=== PATIENT | male | born 1995 | race Caucasian/White ===

== ENCOUNTER 2024-07-09 09:00 | Emergency (ER) | payer BC ==
--- OUTSIDE RECORDS SUMMARY | 2024-07-09 09:02 | XMS REPORT | Continuity of Care Document ---
Author Name Unknown Address [address] [place] [address] [facility] thconnect Address [address] [place] [address] Care Team Providers Care Solution Developer Name Role Phone Dorothea Anderson MD Primary Care Physician SONJA ADAMS JR Attending Clinician Unavailable KEESHA BLANCO Attending Clinician Unavailable DILIA LEOS Attending Clinician Unavailable Dilia Leos PA-C Attending Clinician [phone] Unknown, Attending Attending Clinician UnavailChaka Yeung MD Attending Clinician [phone] Myra Thompson Attending Clinician [phone] NORA KINNEY Attending Clinician Sia Correa MD, Provider Not In Attending Clinician U JUAN MANUEL Ramon Attending Clinician UnavailNORA Hall Admitting Clinician JUAN MANUEL López Admitting Clinician Sia clayton Payers Payer Name Policy Type Policy Number Effective Date Expirati on Date Source [facility] [id number] 2019 00:00:00 [facility] [id number] 00:00:00 Allergies, Adverse Reactions, Alerts Allergy Name Allergy Type Status Severity Reaction(s) Onset Date Inactive Date Treating Clinician Comments Source NO KNOWN ALLERGIE S Drug Class Active [facility] Social History Social Habit Start Date Stop Date Quantity Comments Source History of tobacco use 2013-01-02 00:00:00 Cigarette Smoker [facility] Gender [facility] Sexual orientation [facility] Exposure to SARS-CoV-2 (event) Not sure [facility] History of Social function 2022-12-28 00:00:00 2022-12-28 00:00:00 [facility] Tobacco Comment 2022-12-28 00:00:00 2022-12-28 00:00:00 Patient Vapes daily [facility] Tobacco use and exposure 2022-12-28 00:00:00 2022-12-28 00:00:00 User of smokeless tobacco [facility] Alcohol intake 2022-12-28 00:00:00 2022-12-28 00:00:00 .29 /d [facility] Sex Assigned At 1995 00:00:00 1995 00:00:00 [facility] Smoking Status Start Date Stop Date Source Tobacco smoking consumption unknown [facility] Ex-smoker 2022-12-28 00:00:00 2022-12-28 00:00:00 [facility] Medications Ordered Medication Name Filled Medication Name Start Date Stop Date Current Medication? Ordering Clinician Indication Dosage Frequency Signature (SIG) Comments Components Source methocarbam oL 500 mg tablet 12-28 00:00: 00 Yes [id number] 500mg Take 1 tablet by mouth at bedtime as needed for Pain (scale 4-6). [facility] naproxen 500 mg tablet 12-28 00:00: 00 Yes [id number] 500mg Take 1 tablet by mouth in the morning and 1 tablet in the evening. Take with meals. [facility] Vital Signs Vital Name Observation Time Observation Value Comments S homarsharon Systolic blood pressure 2022-12-28 23:57:00 120 mm[Hg] [facility] Diastolic blood pressure 2022-12-28 23:57:00 74 mm[Hg] [facility] Heart rate 2022-12-28 23:57:00 64 /min [facility] Body temperature 2022-12-28 23:57:00 37.28 [place] [facility] Respiratory rate 2022-12-28 23:57:00 16 /min [facility] Body height 2022-12-28 23:57:00 170.2 cm [facility] Body weight 2022-12-28 23:57:00 86.183 kg [facility] BMI 2022-12-28 23:57:00 29.76 kg/m2 [facility] Oxygen saturation in Arterial blood by Pulse oximetry 2022-12-28 23:57:00 99 /min [place] [facility] Encounters Start Date/Time End Date/Time Encounter Type Admission Type Attending Clinicians Care Facility Care Department Encounter ID Source 2020-11-08 01:03:53 Outpatient SONJA ADAMS JR [facility] [id number] [facility] 2020-10-23 04:05:26 Outpatient KEESHA BLANCO [facility] [id number] [facility] 2022-12-28 18:40:00 2022-12-28 19:11:32 Outpatient R DILIA LEOS [facility] [id number] [facility] 2022-12-28 18:40:00 2022-12-28 19:11:32 Urgent Care Dilia Leos Unknown, Attending [facility]?EFFIE [facility] [id number] [facility] 2022-12-28 00:00:00 2022-12-28 00:00:00 [facility] (Out[facility] [id number] [id number] [facility] 2020-12-23 10:33:05 2020-12-23 11:02:33 Office Visit [facility] [id number] [facility] 2020-11-25 12:58:24 2020-11-25 14:55:44 Office Visit ShruthiMyra [facility] [id number] [facility] 2020-10-28 13:07:18 2020-10-29 15:48:32 Office Visit Chaka Don [facility] [id number] [facility] 2020-10-07 20:49:00 2020-10-09 14:00:00 Inpatient E NORA KINNEY [facility] MED [id number] [facility] 2020-10-09 00:00:00 2020-10-09 00:00:00 EXT [facility] OP System, Provider Not In EXT [facility] LOCATION [id number] [facility] 2020-10-09 00:00:00 2020-10-09 00:00:00 EXT [facility] OP System, Provider Not In EXT [facility] LOCATION [id number] [facility] 2020-10-07 15:56:00 2020-10-07 23:59:00 Outpatient [facility]EL [facility] [id number] [facility] 2020-10-07 00:00:00 2020-10-07 00:00:00 EXT [facility] OP Jay Adamston EXT [facility] LOCATION [id number] [facility] 2020-10-07 00:00:00 2020-10-07 00:00:00 EXT [facility] OP Bryan Sonja EXT [facility] LOCATION [id number] [facility]
[2024-07-09] MEDS ORDERED: KETOROLAC 30 MG/ML INJ ONE (09:38)
[2024-07-09 10:21] LABS: Absolute Lymphocytes (CBC) 2.3 K/uL (0.7-4.9); Absolute Monocytes 0.4 K/uL (0.1-1.3); Absolute Neutrophil 5.3 K/uL (1.8-8.0); Basophils % 0.3 % (0-1.3); Eosinophils % 0.2 % (0-4.4); Hematocrit 45.1 % (39.6-49.0); Lymphocytes % 28.2 % (15.3-44.8); MCH 31.1 pg (27.0-35.0); MCHC 35.4 g/dL (32.0-36.0); MCV 87.9 fL (80-100); MPV 7.7 fL (7.6-11.3); Monocytes % 5.6 % (3.3-12.3); Neutrophils % 65.7 % (41.7-73.7); Nucleated Red Blood Cells % 0.2 % (0-0); Platelets 247 thou/uL (152-406); RBC Red Blood Cell Count 5.13 M/uL (4.33-5.43); Red Cell Distribution Width 12.8 % (12.1-15.2)
--- NOTE | 2024-07-09 10:24 | RAD REPORT ---
Procedure: Chest Single View HISTORY: Chest pain COMPARISON: none FINDINGS: The lungs appear clear of acute infiltrate. No significant pleural effusion noted. The heart is normal size. IMPRESSION: No acute abnormality is displayed.
[2024-07-09 10:38] LABS: Albumin 3.8 g/dL (3.4-5.0); Albumin/Globulin Ratio 1.1 (1.1-1.8); Anion Gap 7.9 mEq/L (5.0-15.0); Bilirubin Direct 0.2 mg/dL (0-0.2); Bilirubin Indirect, Calculated 1.1 mg/dL (0.2-0.8); Bilirubin Total 1.3 mg/dL (0.2-1.0); Globulin 3.6 g/dL (2.3-3.5); Potassium 3.9 mEq/L (3.5-5.1); Protein, Total 7.4 g/dL (6.4-8.2)
--- NOTE | 2024-07-09 10:50 | RAD REPORT ---
EXAMINATION: CT ABDOMEN AND PELVIS WITH CONTRAST CLINICAL INDICATION: Abdominal pain TECHNIQUE: CT abdomen and pelvis was performed, after the administration of 100 cc Isovue-300.. Sagit linus and coronal reconstructions were obtained. One or more of the following dose reduction techniques were used: Automated exposure control, adjustment of the mA and kV according to patient si ze, and iterative reconstruction. Unless otherwise specified, incidental findings do not require dedicated imaging follow-up. [id number]. Oral contrast was not given which limits evaluation of bowel and appendix. COMPARISON: .None FINDINGS: Liver, spleen, pancreas, adrenals and kidneys appear unremarkable No evidence of diverticulitis. Normal appendix. Small bilateral hernias. : IMPRESSION: No acute traumatic injury is displayed
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
[2024-07-09 11:28] VITALS: BP 120/62; O2SAT 99
[2024-07-09 11:43] VITALS: TEMP 98.1
== END 2024-07-09 11:12 | disposition home or self-care (01) ==
LOC: ER 09:00
DX: R10.31 Right lower quadrant pain (principal); V49.49XA Driver injured in collision with other motor vehicles in traffic accident, initial encounter
CPT/HCPCS: 85025; 80048; 36415; 80076; 74177; 71045; 96374; 99285; Q9967

== ENCOUNTER 2025-03-15 10:08 | Emergency (ER) | payer BC ==
--- OUTSIDE RECORDS SUMMARY | 2025-03-15 10:13 | XMS REPORT | Continuity of Care Document ---
Author Name Unknown Address [address] [facility] [address] [place] [address] Organization [facility] [place] Address [address] [facility] [address] [place] [address] Care Team Providers Care Choker Hooker Name Role Phone Dorothea Anderson MD Primary Care Physician [phone] SONJA GAMEZ JR Attending Clinician Unavailable KEESHA BLANCO Attending Clinician Unavailable DILIA LEOS Attending Clinician Unavailable Dilia Leos PA-C Attending Clinician [phone] Unknown, Attending Attending Clinician UnavailChaka Yeung MD Attending Clinician [phone] Myra Thompson Attending Clinician [phone] NORA KINNEY Attending Clinician Sia Correa MD, Provider Not In Attending Clinician U JUAN MANUEL Ramon Attending Clinician NORA Stephens Admitting Clinician JUAN MANUEL López Admitting Clinician Sia clayton Payers Payer Name Policy Type Policy Number Effective Date Expirati on Date Source [facility] [id number] 2019 00:00:[address] [facility] [id number] 1 00:00:00 Allergies, Adverse Reactions, Alerts Allergy Name Allergy Type Status Severity Reaction(s) Onset Date Inactive Date Treating Clinician Comments Source NO KNOWN ALLERGIE S Drug Class Active [facility] Social History Social Habit Start Date Stop Date Quantity Comments Source History of tobacco use 2013-01-02 00:00:00 Cigarette Smoker [facility] Exposure to SARS-CoV-2 (event) Not sure [facility] History of Social function 2022-12-28 00:00:00 2022-12-28 00:00:00 [facility] Tobacco Comment 2022-12-28 00:00:00 2022-12-28 00:00:00 Patient Vapes daily [facility] Tobacco use and exposure 2022-12-28 00:00:00 2022-12-28 00:00:00 User of smokeless tobacco [facility] Alcohol intake 2022-12-28 00:00:00 2022-12-28 00:00:00 .29 /d [facility] Sex Assigned At 1995 00:00:00 1995 00[birth year]00:00 [facility] Smoking Status Start Date Stop Date Source Tobacco smoking consumption unknown [facility] Ex-smoker 2022-12-28 00:00:00 2022-12-28 00:00:00 [facility] Medications Ordered Medication Name Filled Medication Name Start Date Stop Date Current Medication? Ordering Clinician Indication Dosage Frequency Signature (SIG) Comments Components Source methocarbam oL 500 mg tablet 12-28 00:00: 00 Yes [id number] 500mg Take 1 tablet by mouth at bedtime as needed for Pain (scale 4-6). [facility] naproxen 500 mg tablet 12-28 00:00: 00 Yes [id number] 500mg Take 1 tablet by mouth in the morning and 1 tablet in the evening. Take with meals. [facility] Vital Signs Vital Name Observation Time Observation Value Comments S ource Systolic blood pressure 2022-12-28 23:57:00 120 mm[Hg] [facility] Diastolic blood pressure 2022-12-28 23:57:00 74 mm[Hg] [facility] Heart rate 2022-12-28 23:57:00 64 /min [facility] Body temperature 2022-12-28 23:57:00 37.28 [place] [facility] Respiratory rate 2022-12-28 23:57:00 16 /min [facility] Body height 2022-12-28 23:57:00 170.2 cm [facility] Body weight 2022-12-28 23:57:00 86.183 kg [facility] BMI 2022-12-28 23:57:00 29.76 kg/m2 [facility] Oxygen saturation in Arterial blood by Pulse oximetry 2022-12-28 23:57:00 99 /min [facility] Encounters Start Date/Time End Date/Time Encounter Type Admission Type Attending Clinicians Care Facility Care Department Encounter ID Source 2020-11-08 01:03:53 Outpatient SONJA GAMEZ JR [facility] [id number] [facility] 2020-10-23 04:05:26 Outpatient KEESHA BLANCO [facility] [id number] [facility] 2022-12-28 18:40:00 2022-12-28 19:11:32 Outpatient R DILIA LEOS [facility] [id number] [facility] 2022-12-28 18:40:00 2022-12-28 19:11:32 Urgent Care Dilia Leos Unknown, Attending [facility]AMEEZ[facility] [id number] [facility] 2022-12-28 00:00:00 2022-12-28 00:00:00 Letter (Out) [facility] [id number] [id number] [facility] 2020-12-23 10:33:05 2020-12-23 11:02:33 Office Visit Chaka [facility] [id number] [facility] 2020-11-25 12:58:24 2020-11-25 14:55:44 Office Visit ShruthiMyra [facility] [id number] [facility] 2020-10-28 13:07:18 2020-10-29 15:48:32 Office Visit Chaka Don [facility] [id number] [facility] 2020-10-07 20:49:00 2020-10-09 14:00:00 Inpatient E ANA KINNEYISSA [facility] [id number] [facility] 2020-10-09 00:00:00 2020-10-09 00:00:00 EXT [facility] OP System, Provider Not In EXT [facility] LOCATION [id number] [facility] 2020-10-09 00:00:00 2020-10-09 00:00:00 EXT [facility] OP System, Provider Not In EXT [facility] LOCATION [id number] [facility] 2020-10-07 15:56:00 2020-10-07 23:59:00 [facility] [id number] [facility] 2020-10-07 00:00:00 2020-10-07 00:00:00 EXT [facility] OP [place] EXT [facility] LOCATION [id number] [id number] [facility] 2020-10-07 00:00:00 2020-10-07 00:00:00 EXT [facility] OP [place] EXT [facility] LOCATION [id number] [facility]
[2025-03-15] MEDS ORDERED: ONDANSETRON 4 MG/2 ML VIAL ONE (10:36)
[2025-03-15] MEDS ORDERED: MORPHINE 4 MG/ML SYR ONE (10:37)
[2025-03-15] MEDS ORDERED: NA CHLORIDE 0.9% 1,000 ML ONE ×2 (10:37→12:38)
[2025-03-15 10:45] LABS: Absolute Lymphocytes (CBC) 1.0 K/uL (0.7-4.9); Hematocrit 48.0 % (39.6-49.0); Hemoglobin 17.0 g/dL (13.6-17.9); MCH 30.7 pg (27.0-35.0); MCHC 35.4 g/dL (32.0-36.0); MCV 86.7 fL (80-100); MPV 7.6 fL (7.6-11.3); Nucleated RBC Absolute Count 0.1 (0-0); Nucleated Red Blood Cells % 0.9 % (0-0); RBC Red Blood Cell Count 5.54 M/uL (4.33-5.43); White Blood Count 10.40 thou/uL (4.3-10.9)
[2025-03-15 11:07] LABS: ALT/SGPT 32 U/L (16-61); AST/SGOT < 10 U/L (15-37); Albumin 3.8 g/dL (3.4-5.0); Albumin/Globulin Ratio 0.9 (1.1-1.8); Alkaline Phosphatase 61 U/L (45-117); Anion Gap 10.7 mEq/L (5.0-15.0); BUN Blood Urea Nitrogen 7 mg/dL (7-18); Globulin 4.4 g/dL (2.3-3.5); Glucose Level 150 mg/dL (74-106); Lipase 29 U/L (13-75); Potassium 2.7 mEq/L (3.5-5.1)
--- NOTE | 2025-03-15 12:16 | RAD REPORT ---
EXAMINATION: CT Abdomen Pelvis W Contrast CLINICAL INDICATION: Male, 30 years old. ABD PAIN TECHNIQUE: CT abdomen and pelvis was performed, after the administration of IV contrast, as per [facility]. Axial, sagittal and coronal reconstructions were obtained. One or more of the following dose reduction techniques were used: Automated exposure control, adjustment of the mA and k V according to patient size, and iterative reconstruction. Unless otherwise specified, incidental findings do not require dedicated imaging follow-up. COMPARISON: 07/09/2024 FINDINGS: LOWER CHEST: The visualized lung bases are clear. LIVER: Normal in size and contour. No focal lesion. BILIARY SYSTEM: No suspicious abnormalities. SPLEEN: Normal size. No focal lesion. PANCREAS: No mass, ductal dilation, or eris-pancreatic fluid. ADRENALS: Normal; no mass. KIDNEYS: Normal size and contour. No hydronephrosis. URINARY BLADDER: Unremarkable. GASTROINTESTINAL TRACT: Mucosal hyperenhancement along most of the colon especially the distal transv erse colon through the rectum. Mild mucosal enhancement along the distal ileum as well. Mild wall prominence of the decompressed descending colon and sigmoid. No evidence of free air, significant int ra-abdominal free fluid, bowel obstruction or abscess. APPENDIX: Normal appendix. LYMPH NODES: No lymphadenopathy. MUSCULOSKELETAL: No acute or suspicious osseous abnormality. ADDITIONAL FINDINGS: None. IMPRESSION: Mild inflammatory changes along the distal ileum and colon to the level of the rectum, nonspecific bu t suggests an infectious or inflammatory enterocolitis.
--- NOTE | 2025-03-15 12:36 | ER ---
Nurse's Notes [facility] Name: Juvencio Knutson Age: 30 yrs Sex: Male : 1995 Arrival Date: 03/15/2025 Time: 10:08 Bed 17 Private MD: Diagnosis: Other specified noninfective gastroenteritis and colitis Presentation: 03/15 10:16 Chief complaint: Patient states: I have been having N/V/D for the past 3 days. jb4 Coronavirus screen: At this time, the client does not indicate any symptoms associated with coronavirus-19. Ebola Screen: No symptoms or risks identified at this time. Initial Sepsis Screen: Does the patient meet any 2 criteria? HR > 90 bpm. Yes Does the patient have a suspected source of infection? No. Patient's initial sepsis screen is negative. Risk Assessment: Do you want to hurt yourself or someone else? Patient reports no desire to harm self or others. Onset of symptoms was March 12, 2025. Transition of care: patient was not received from another setting of care. 10:16 Method Of Arrival: Ambulatory jb4 10:16 Acuity: ULYSSES 3 jb4 Historical: - Allergies: 10:17 Sillantro; jb4 - PMHx: 10:17 Hypoglycemia; jb4 - PSHx: 10:17 right leg; jb4 - Immunization history:: Adult Immunizations up to date. - Infectious Disease History:: Denies. - Social history:: Smoking status: Reported history of juuling and/or vaping. Screenin:30 [facility] ED Fall Risk Assessment (Adult) History of falling in the last 3 months, jp5 including since admission No falls in past 3 months (0 pts) Confusion or Disorientation No (0 pts) Intoxicated or Sedated No (0 pts) Impaired Gait No (0 pts) Mobility Assist Device Used No (0 pt) Altered Elimination No (0 pt) Score/Fall Risk Level 0 - 2 = Low Risk Oriented to surroundings, Maintained a safe environment, Educated pt \T\ family on fall prevention, incl call for assistance when getting out of bed, Assessed \T\ reinforced patient's understanding of fall precautions, Provided non-skid footwear, Hourly rounding (assess needs \T\ fall precautionary measures) done, Used ambulatory aids as needed (educated on \T\ assisted with), Used gait belt as appropriate. Abuse screen: Denies threats or abuse. Denies injuries from another. Nutritional screening: Has had N/V for 3 or more days. Tuberculosis screening: No symptoms or risk factors identified. Assessment: 10:30 General: Appears in no apparent distress. comfortable, unkempt, Behavior is calm, jp5 cooperative, appropriate for age, Smells of foul smell. GI: Reports diarrhea, vomiting. Vital Signs: 10:16 BP 133 / 88; Pulse 109; Resp 16; Temp 97.8(TE); Pulse Ox 96% ; Weight 83.91 kg (R); jb4 Height 5 ft. 7 in. (R); 11:28 BP 138 / 97; Pulse 83; Resp 16; Pain 6/10; pm7 12:30 BP 132 / 79; Pulse 90; Resp 18; Temp 97.5(O); Pulse Ox 98% ; jp5 10:16 Body Mass Index 28.97 (83.91 kg, 170.18 cm) jb4 11:28 Pain Scale: Adult pm7 ED Course: 10:12 Patient arrived in ED. al6 10:12 Zac Taylor FNP-C [facility]. dr5 10:12 Keren Borja MD is Attending Physician. dr5 10:17 Triage completed. jb4 10:18 Arm band placed on. jb4 10:25 Litzy Harvey, RN is Primary Nurse. jp5 10:30 Patient has correct armband on for positive identification. Bed in low position. Call jp5 light in reach. Side rails up X 1. Provided Education on: call light use. Pulse ox on. NIBP on. Warm blanket given. 10:37 CBC with Diff Sent. jp5 10:37 CMP Sent. jp5 10:37 Lipase Sent. jp5 10:38 Inserted saline lock: 22 gauge in right forearm, using aseptic technique. Blood pm7 collected. Flushed with 10 mL NS. 10:46 No provider procedures requiring assistance completed. jp5 12:06 CT Abd/Pelvis - IV Contrast Only In Process Unspecified. EDMS 13:17 IV discontinued, intact, bleeding controlled, No redness/swelling at site. Pressure jp5 dressing applied. Administered Medications: 10:37 Drug: NS 0.9% IV 1000 ml IV at 1 bolus Per protocol; to be given as a bolus over 60 jp5 minutes Route: IV; Rate: 1 bolus; Site: right antecubital; 11:27 Follow up: IV Status: Completed infusion; IV Intake: 1000ml jp5 10:38 Drug: Ondansetron IVP 4 mg IVP once; over 2 minutes Route: IVP; Site: right antecubital;jp5 11:08 Follow up: Response: No adverse reaction jp5 10:38 Drug: morphine IVP or IV 4 mg IVP once over 4 mins Route: IVP; Infused Over: 4 mins; jp5 Site: right antecubital; 11:08 Follow up: Response: No adverse reaction jp5 12:41 Drug: NS 0.9% IV 1000 ml IV at 1000 ml once; to be given as a bolus over 60 minutes jp5 Route: IV; Rate: 1000 ml; Site: right forearm; 13:16 Follow up: IV Status: Completed infusion; IV Intake: 1000ml jp5 12:41 Drug: Amoxicillin-Clavulanate PO 875 mg PO once Route: PO; jp5 13:16 Follow up: Response: No adverse reaction jp5 Medication: 10:30 VIS not applicable for this client. jp5 Intake: 11:27 IV: 1000ml; Total: 1000ml. jp5 13:16 IV: 1000ml; Total: 2000ml. jp5 Outcome: 12:35 Discharge ordered by MD. dr5 13:18 Discharged to home ambulatory, jp5 13:18 Condition: stable 13:18 Discharge instructions given to patient, Instructed on discharge instructions, follow up and referral plans. medication usage, Demonstrated understanding of instructions, follow-up care, medications, Prescriptions given X 2, 13:25 Patient left the ED. jp5 Signatures: Dispatcher [employer] EDMS Mario Fuller RN RN jb4 Litzy Harvey RN RN jp5 Zac Taylor, FATOUMATA-C INTERNATIONAL TRADE ANALYST-Cdr5 Nasrin Cordero alCuca Hanson pm7 Corrections: (The following items were deleted from the chart) 10:18 10:16 Pulse 109bpm; Resp 16bpm; Pulse Ox 96%; Temp 97.8F Temporal; 83.91 kg Reported; jb4 Height 5 ft. 7 in. Reported; BMI: 28.9; jb4 10:18 10:17 PMHx: None; jb4 jb4 10:47 10:30 [facility] ED Fall Risk Assessment (Adult) History of falling in the last 3 months, jp5 including since admission No falls in past 3 months (0 pts) Confusion or Disorientation No (0 pts) Intoxicated or Sedated No (0 pts) Impaired Gait No (0 pts) Mobility Assist Device Used No (0 pt) Altered Elimination No (0 pt) Score/Fall Risk Level 0 - 2 = Low Risk Oriented to surroundings, Maintained a safe environment, Educated pt \T\ family on fall prevention, incl call for assistance when getting out of bed, Assessed \T\ reinforced patient's understanding of fall precautions, Provided non-skid footwear, Hourly rounding (assess needs \T\ fall precautionary measures) done, Used ambulatory aids as needed (educated on \T\ assisted with), Used gait belt as appropriate jp5 10:47 10:30 Nutritional screening: No deficits noted. jp5 jp5
--- NOTE | 2025-03-15 12:36 | EDPHYS ---
Physician Documentation [facility] Name: Juvencio Knutson Age: 30 yrs Sex: Male : 1995 Arrival Date: 03/15/2025 Time: 10:08 Bed 17 Private MD: ED Physician Keren Borja HPI: 03/15 10:27 This 30 yrs old Male presents to ER via Ambulatory with complaints of dr5 Nausea/Vomiting/Diarrhea, Abdominal Pain. 10:27 The patient presents to the emergency department with nausea, vomiting. Onset: The dr5 symptoms/episode began/occurred 3 day(s) ago. Patient is a 30-year-old male with history of hyperglycemia coming in with right lower quadrant abdominal pain and dysuria has been going on for about 3 days. Patient reports chills been having nausea vomiting with approximately 3-4 episodes a day. Patient denies chest pain, shortness of breath, diarrhea, constipation.. Historical: - Allergies: 10:17 Sillantro; jb4 - PMHx: 10:17 Hypoglycemia; jb4 - PSHx: 10:17 right leg; jb4 - Immunization history:: Adult Immunizations up to date. - Infectious Disease History:: Denies. - Social history:: Smoking status: Reported history of juuling and/or vaping. ROS: 10:27 Constitutional: as per hpi dr5 Exam: 10:27 Constitutional: This is a well developed, well nourished patient who is awake, alert, dr5 and in no acute distress. Head/Face: Normocephalic, atraumatic. Eyes: Pupils equal round and reactive to light, extra-ocular motions intact. Lids and lashes normal. Conjunctiva and sclera are non-icteric and not injected. Cornea within normal limits. Periorbital areas with no swelling, redness, or edema. Neck: Trachea midline, no thyromegaly or masses palpated, and no cervical lymphadenopathy. Supple, full range of motion without nuchal rigidity, or vertebral point tenderness. No Meningismus. Chest/axilla: Normal chest wall appearance and motion. Nontender with no deformity. No lesions are appreciated. Cardiovascular: Regular rate and rhythm with a normal S1 and S2. Normal PMI, no JVD. No pulse deficits. Respiratory: Lungs have equal breath sounds bilaterally, clear to auscultation. No rales, rhonchi or wheezes noted. No increased work of breathing, no retractions or nasal flaring. Back: No spinal tenderness. No costovertebral tenderness. Full range of motion. Skin: Warm, dry with normal turgor. Normal color with no rashes, no lesions, and no evidence of cellulitis. MS/ Extremity: Pulses equal, no cyanosis. Neurovascular intact. Full, normal range of motion. Neuro: Awake and alert, GCS 15, oriented to person, place, time, and situation. Cranial nerves II-XII grossly intact. Motor strength 5/5 in all extremities. Sensory grossly intact. Cerebellar exam normal. Normal gait. 10:27 Abdomen/GI: Inspection: abdomen appears normal, Bowel sounds: normal, Palpation: moderate abdominal tenderness, in the suprapubic area and right lower quadrant, Vital Signs: 10:16 BP 133 / 88; Pulse 109; Resp 16; Temp 97.8(TE); Pulse Ox 96% ; Weight 83.91 kg (R); jb4 Height 5 ft. 7 in. (R); 11:28 BP 138 / 97; Pulse 83; Resp 16; Pain 6/10; pm7 12:30 BP 132 / 79; Pulse 90; Resp 18; Temp 97.5(O); Pulse Ox 98% ; jp5 10:16 Body Mass Index 28.97 (83.91 kg, 170.18 cm) jb4 11:28 Pain Scale: Adult pm7 MDM: 10:12 Medical Screening Exam initiated dr5 12:52 Differential diagnosis: gastritis, appendicitis, diverticulitis, viral gastroenteritis, dr5 gastroenteritis. Data reviewed: vital signs, nurses notes, lab test result(s), amylase and lipase, CBC, white blood cell count, hemoglobin, hematocrit, platelets, electrolytes, sodium, potassium, chloride, serum bicarbonate, BUN, creatinine, serum glucose, radiologic studies, CT scan. Consideration of Admission/Observation Escalation of care including admission/observation considered. Escalation considered patient found to have p.o. intolerance or not feeling better after 2 L of IV fluids.. I considered the following discharge prescriptions or medication management in the emergency department I discussed and recommended Over The Counter medications, Medications were administered in the Emergency Department. See MAR. Historians other than the Patient: Spouse/Significant Other: Girlfriend at bedside. Care significantly affected by the following chronic conditions: Hypoglycemia. Care significantly affected by the following Social Determinants of Health: Poor access to healthcare and/or lack of insurance, Poor access to transportation, Problems related to employment. Counseling: I had a detailed discussion with the patient and/or guardian regarding the historical points, exam findings, and any diagnostic results supporting the discharge/admit diagnosis, the presence of at least one elevated blood pressure reading (>120/80) during this emergency department visit, lab results, radiology results, the need for outpatient follow up, for definitive care, a family practitioner, to return to the emergency department if symptoms worsen or persist or if there are any questions or concerns that arise at home. Medication response: Morphine, Zofran, 2 L of IV fluids. Response to treatment: the patient's symptoms have markedly improved after treatment. Special discussion: Based on the patient's Hx, exam, and Dx evaluation, there is no indication for emergent surgery or inpatient Tx. It is understood by the patient/guardian that if the Sx's persist or worsen they need to return immediately for re-evaluation. I discussed with the patient/guardian in detail that at this point there is no indication for admission to the hospital. It is understood, however, that if the symptoms persist or worsen the patient needs to return immediately for re-evaluation. Based on the history and exam findings, there is no indication for further emergent testing or inpatient evaluation. I discussed with the patient/guardian the need to see the accounts receivable collector for further evaluation of the symptoms. ED course: All labs discussed with patient and explained course of plan. Recommended hydration. Will give patient Augmentin and Zofran for colitis and to facilitate hydration. All questions answered. Recommended liquid diet until feeling better then slowly improving to foods. All questions answered. Strict ER precautions given.. 03/15 10:27 Order name: CBC with Diff; Complete Time: 10:55 dr5 03/15 10:27 Order name: CMP; Complete Time: 11:10 dr5 03/15 10:27 Order name: Lipase; Complete Time: 11:10 dr5 03/15 10:27 Order name: CT Abd/Pelvis - IV Contrast Only; Complete Time: 12:19 dr5 03/15 10:27 Order name: IV Saline Lock; Complete Time: 10:37 dr5 03/15 10:27 Order name: Labs collected and sent; Complete Time: 10:37 dr5 Administered Medications: 10:37 Drug: NS 0.9% IV 1000 ml IV at 1 bolus Per protocol; to be given as a bolus over 60 jp5 minutes Route: IV; Rate: 1 bolus; Site: right antecubital; 11:27 Follow up: IV Status: Completed infusion; IV Intake: 1000ml jp5 10:38 Drug: Ondansetron IVP 4 mg IVP once; over 2 minutes Route: IVP; Site: right antecubital;jp5 11:08 Follow up: Response: No adverse reaction jp5 10:38 Drug: morphine IVP or IV 4 mg IVP once over 4 mins Route: IVP; Infused Over: 4 mins; jp5 Site: right antecubital; 11:08 Follow up: Response: No adverse reaction jp5 12:41 Drug: NS 0.9% IV 1000 ml IV at 1000 ml once; to be given as a bolus over 60 minutes jp5 Route: IV; Rate: 1000 ml; Site: right forearm; 13:16 Follow up: IV Status: Completed infusion; IV Intake: 1000ml jp5 12:41 Drug: Amoxicillin-Clavulanate PO 875 mg PO once Route: PO; jp5 13:16 Follow up: Response: No adverse reaction jp5 Disposition Summary: 03/15/25 12:35 Discharge Ordered Notes: Location: Home dr5 Condition: Stable dr5 Diagnosis - Other specified noninfective gastroenteritis and colitis dr5 Followup: dr5 - With: Emergency Department - When: As needed - Reason: Worsening of condition Followup: dr5 - With: Private Physician - When: 1 - 2 days - Reason: Recheck today's complaints, Continuance of care, Re-evaluation by your physician Discharge Instructions: - Discharge Summary Sheet dr5 - Colitis dr5 Forms: - Work release form ll1 - Medication Reconciliation Form dr5 - Antibiotic Education dr5 - Patient Portal Instructions dr5 - Leadership Thank You Letter dr5 Prescriptions: - Augmentin 875-125 mg Oral Tablet - take 1 tablet ORAL route every 12 hours for 10 days; 20 tablet; Refills: 0, dr5 Product Selection Permitted - Zofran 4 mg Oral Tablet - take 1 tablet ORAL route every 12 hours As needed; 20 tablet; Refills: 0, dr5 Product Selection Permitted Signatures: Dispatcher [facility] Mario Page RN RN jb4 Litzy Harvey RN RN jp5 Zac Taylor FNP-C FNP-5 Corrections: (The following items were deleted from the chart) 10: 10:17 PMHx: None; jb4 jb4 10: 10:27 Abdomen Pelvis W Con+CT.RAD.BRZ ordered. EDMS EDMS
[2025-03-15] MEDS ORDERED: AMOX/K CLAV 875 MG TAB ONE (12:38)
[2025-03-15 13:44] VITALS: BP 132/79; TEMP 97.5; O2SAT 98
== END 2025-03-15 13:25 | disposition home or self-care (01) ==
LOC: ER 10:08
DX: K52.89 Other specified noninfective gastroenteritis and colitis (principal)
CPT/HCPCS: 96361; 85025; 36415; 83690; 80053; 74177; 96375; 96374; 99284; Q9967; J2405; J7030 ×2